=== PATIENT | male | born 1980 | race Two or more races ===

== ENCOUNTER 2020-08-19 09:06 | Outpatient (REF) | payer BC, SELFPAY | END 2020-08-19 09:07 | disposition home or self-care (01) | LOC: HO.LAB 09:06 | PROVIDERS: PCP Internal Medicine; Visit Provider Internal Medicine | DX: Z20.828 Contact with and (suspected) exposure to other viral communicable diseases (principal) | CPT/HCPCS: C9803; U0003 ==

== ENCOUNTER 2022-11-16 16:44 | Outpatient (REF) | payer BC, SELFPAY ==
[2022-11-16 17:01] LABS: MANUAL DIFF FLAG NO
[2022-11-16 17:36] LABS: Basophils Absolute Auto 0.1 X10*3/uL (0.0-0.2); Basophils Percent Auto 0.6 % (0-2); Eosinophils Absolute Auto 0.2 X10*3/uL (0.0-0.4); Eosinophils Percent Auto 1.8 % (0-4); Hematocrit 45.8 % (42.0-52.0); Hemoglobin 15.8 g/dl (14.0-18.0); Imm Gran Abs Auto 0.03 X10*3/uL (0.00-0.03); Imm Gran Pct Auto 0.4 % (0.0-0.4); Lymphocytes Absolute Auto 3.3 X10*3/uL (1.2-4.9); Lymphocytes Percent Auto 39.9 % (20-40); Mean Corpuscular HGB Conc 34.5 g/dl (31.0-36.0); Mean Corpuscular Hemoglobin 31.5 pg (27.0-33.0); Mean Corpuscular Volume 91.2 fL (80.0-98.0); Mean Platelet Volume 9.2 fL (9.4-12.4); Monocytes Absolute Auto 0.5 X10*3/uL (0.1-1.2); Monocytes Percent Auto 6.4 % (2-11); Neutrophils Absolute Auto 4.2 x10*3/uL (2.0-8.3); Neutrophils Percent Auto 50.9 % (45-73); Platelet Count 364 X10*3/uL (160-400); Red Blood Count 5.02 X10*6/uL (4.60-5.80); Red Cell Distribution Width 12.4 % (11.0-16.0); White Blood Count 8.2 X10*3/uL (4.8-10.8)
[2022-11-16 18:39] LABS: Alanine Aminotransferase 59 U/L (0-40); Albumin Level 4.4 g/dL (3.5-5.0); Alkaline Phosphatase 93 U/L (39-117); Anion Gap 17 (12-20); Aspartate Amino Transferase 33 U/L (5-37); Bilirubin Total 0.6 mg/dL (0.0-1.0); Blood Urea Nitrogen 17 mg/dL (9-16); Calcium 9.6 mg/dL (8.4-10.2); Carbon Dioxide 23 mmol/L (22-29); Chloride 105 mmol/L (96-108); Cholesterol 183 mg/dL; Estimated Glomerular Filt Rate 51; Glucose Random 86 mg/dL (60-115); HDL Cholesterol 50 mg/dL; LDL Cholesterol Calculated 98 mg/dl; Potassium 4.3 mmol/L (3.3-5.1); Sodium 141 mmol/L (135-145); Total Protein 6.9 g/dL (6.5-8.0); Triglycerides 177 mg/dL
[2022-11-16 18:56] LABS: Thyroid Stimulating Hormone 1.54 uIU/mL (0.32-4.0)
== END 2022-11-16 16:45 | disposition home or self-care (01) ==
LOC: HO.LAB 16:44
PROVIDERS: PCP Internal Medicine; Visit Provider Internal Medicine
DX: Z00.00 Encounter for general adult medical examination without abnormal findings (principal); L50.8 Other urticaria; Z71.6 Tobacco abuse counseling; T78.3XXS Angioneurotic edema, sequela
CPT/HCPCS: 36415; 80053; 80061; 84443; 85025

== ENCOUNTER 2022-12-28 14:38 | Outpatient (REF) | payer BC, SELFPAY ==
[2022-12-28 16:56] LABS: Urine Cytology See Pathology rpt
== END 2022-12-28 14:39 | disposition home or self-care (01) ==
LOC: HO.LNP 14:38
PROVIDERS: PCP Internal Medicine; Visit Provider Nurse Practitioner Family
DX: R31.29 Other microscopic hematuria (principal); F52.4 Premature ejaculation; E29.1 Testicular hypofunction; N52.9 Male erectile dysfunction, unspecified
CPT/HCPCS: 88112

== ENCOUNTER 2023-01-21 14:53 | Outpatient (REF) | payer BC, SELFPAY ==
--- NOTE | ~2023-01-21 | CT_ITS ---
EXAMINATION: CT ABDOMEN AND PELVIS WITHOUT AND WITH CONTRAST CLINICAL INFORMATION: Microscopic hematuria COMPARISON: None available. TECHNIQUE: Noncontrast CT of the abdomen and pelvis is performed followed by split bolus contrast-enhanced images using 85 mL Omnipaque 350 contrast.? Postcontrast imaging is performed during the combined nephrogram and excretion phase. Sagittal and coronal reformatted images were obtained on the technologist's workstation for both the precontrast and postcontrast phases. This CT examination was performed using dose optimization techniques as appropriate, variously including the following: *Automated exposure control *Adjustment of mA and/or kV according to patient size (this includes techniques or standardized protocols for targeted exams where dose is matched to indication/reason for exam; i.e. extremities or head) *Use of iterative reconstruction technique DLP: 586 mGy-cm FINDINGS: LUNG BASES: There is bibasilar dependent atelectasis. The heart size is normal. LIVER, GALLBLADDER, AND BILIARY TREE: The liver is normal in size, shape, and attenuation. No focal hepatic lesion or biliary ductal dilatation is present. The gallbladder is unremarkable with no evidence of radiopaque gallstones, gallbladder wall thickening, or obvious pericholecystic inflammatory changes. PANCREAS: Unremarkable. SPLEEN: Unremarkable. ADRENAL GLANDS: Unremarkable. KIDNEYS AND URETERS: There is a nonobstructive 2 mm radiopaque calculi upper pole right kidney. Following contrast administration there is bilateral symmetrical nephrograms without focal defect, enhancing mass or cyst. Left kidney measures 10.4 cm in length and right kidney measures 10.2 cm in length. There is opacification of bilateral kidney pelvises and right proximal ureter without any significant filling defect or distention. Nonopacified ureters are normal caliber also. BLADDER: Partially opacified bladder appears unremarkable. GASTROINTESTINAL TRACT: Scattered stool and gas is seen in colon without distention. The small bowel loops are normal caliber appendix is normal caliber. ABDOMINAL WALL: No significant hernia is appreciated. LYMPH NODES: No abnormal size retroperitoneal lymph nodes or mass seen. VASCULAR: Unremarkable. PELVIC VISCERA: Unremarkable. OSSEUS STRUCTURES: No aggressive lytic or sclerotic process seen. CT/CT urogram IMPRESSION: 1. Nonobstructive 2 mm radiopaque calculi upper pole right kidney. No caliectasis or hydronephrosis seen. 2. Mild constipation.
[2023-01-21] MEDS: iohexoL 350 MG/ML 100 ML INFUS..BTL IV (16:01)
== END 2023-01-21 14:54 | disposition home or self-care (01) ==
LOC: HO.CT 14:53
PROVIDERS: PCP Internal Medicine; Visit Provider Nurse Practitioner Family
DX: R31.29 Other microscopic hematuria (principal)
CPT/HCPCS: 74178; Q9967

== ENCOUNTER 2023-02-16 11:47 | Outpatient (REF) | payer BC, SELFPAY ==
[2023-02-16 13:44] LABS: Blood Urea Nitrogen 16 mg/dL (9-16); Estimated Glomerular Filt Rate > 60
[2023-02-21 12:33] LABS: Testosterone, Free 85.4 pg/mL (35.0-155.0); Testosterone, Total 606 ng/dL (250-1100)
== END 2023-02-16 11:48 | disposition home or self-care (01) ==
LOC: HO.LAB 11:47
PROVIDERS: PCP Internal Medicine; Visit Provider Nurse Practitioner Family
DX: E29.1 Testicular hypofunction (principal); R31.29 Other microscopic hematuria
CPT/HCPCS: 36415; 82565; 84402; 84403; 84520

== ENCOUNTER 2023-03-01 12:58 | Outpatient (AMB) | payer BC, SELFPAY ==
--- NOTE | 2023-03-01 13:19 | MHC.OFFVIS ---
Intake Intake Visit Reasons: Cysto/CT results/Labs Intake Note: Patient presents today for a Cystoscopy Procedure: Meds: None Antibiotic: None Blood Thinner: None Urinalysis test clear for Cystoscopy Undercutter Operator Required: No Accompanied by: Self / Same As Patient Allergies chantix Adverse Reaction (Uncoded 12/28/22 15:39) Hallucinations Medication List - Last Reconciled 03/01/23 by Mai Maravilla MD sildenafil (Viagra) 50 mg PO 2XW PRN tadalafil (Cialis) 5 mg PO DAILY HPI HPI Comments History of Present Illness Details Gael is a 42-year-old male presents to the office for cystoscopy procedure. 03/01/23-- The patient was last seen by WAREHOUSE SHIPPING SUPERVISOR Spohia Patel on 12/28/22. He had complains of ED and premature ejaculatio during the evaluation on that appoitment, UA was notable for microscopic hematuria past medical history: sognificant for nictonie dependecy pt was advised on hematuria work-up including CT imaging adn urien cytology he was also advised on nicotine cessation as it contributed to ED. The patient states that he went to see a physician when he was visiting in [facility] and he was prescribed an injectable to increase his testosterone level, he was told that he lab work which was done during the visit showed low testosterone level. [place] advised him not to take injectables and was reffered to urology. The WAREHOUSE SHIPPING SUPERVISOR ordered a testosterone level which I reviewed with the patient and was within normal limits. I reviewed CT urogram with the patient- there is 2 mm stone in upper pole of right kidney. I have discussed following up a trial of Cialis 5 mg QD as well as on demand Viagra 50 mg, no more than twice a week. I have advised him that if he has an erection for longer than 4 hours, then he needs to go to the ER and I will follow-up in 4 months. CTAP urogram results reviewed--01/21/23-- 2 mm calculi upper pole right kidney. No hydronehrosis. Urine cytology-- Non diagnostic. Evaluation today: Blood: negative, leukocytes: negative. Cystoscopy findings-- no suspicious bladder lesions visualized. Blood work results reviewed--02/16/23--total testosterone?606; free testosterone-- 85.4. Plan: Discussed to stop smoking. Viagra 50 mg was ordered. Cialis 5 mg QD was ordered. PFSH Medical History Dyslipidemia Surgical History History of tonsillectomy Review of Systems Const All systems reviewed & are unremarkable except as noted in HPI and below Reports as per HPI Eyes Reports no additional complaints ENT Reports no additional complaints Card Reports no additional complaints Resp Reports no additional complaints GI Reports no additional complaints Reports as per HPI Musc Reports no additional complaints Neuro Reports no additional complaints Psych Reports no additional complaints Endo Reports no additional complaints Jerad/Lymph Reports no additional complaints Aller/Immun Reports no additional complaints Office Procedures Cystoscopy Consent Discussed risk and benefit or proposed procedure with the patient. Information consent for procedure given to the patient. Discussed technical aspects, risks, benefits and alternatives in full. Addressed all of the patient's questions and concerns regarding the procedure. The patient demonstrated knowledge and understanding. They wish to proceed with this procedure. Preparation The patient was prepped in the usual manner. A caterpillar driver was present and in the room. Genitalia was prepped with betadine solution in a sterile manner. Lidocaine Jelly 2% was placed into the urethra and 16Fr flexible Olympus cystoscope was inserted into the meatus after adequate lubrication. Procedure Time out per protocol performed. Bladder Inspection Bladder Inspection: The bladder was inspected in its entirety with utilization retroflexion displaying: Tumor(s): none Trabeculation: N/A Mucosal Erthema: N/A Orifices: normal shape and position Urethra: normal Cystoscopy findings: prostatic urethra non obstructive, bulbous urethra WNL, no suspicious bladder lesions visualized [id number] Procedure code (CPT) selection complete Office Meds lidocaine HCl Performing Provider: Mai Maravilla MD Documented (not given) by: Mariela Natarajan RN on 03/01/23 13:34 Dose Route Admin Location Lot Number Expiration Date [facility] Petrophysicist 10 mL intra-urethral naproxen Performing Provider: Mai Maravilla MD Documented (not given) by: Mariela Natarajan RN on 03/01/23 13:34 Dose Route Admin Location Lot Number Expiration Date [facility] Petrophysicist 500 mg PO ciprofloxacin HCl Performing Provider: Mai Maravilla MD Documented (not given) by: Mariela Natarajan RN on 03/01/23 13:34 Dose Route Admin Location Lot Number Expiration Date [facility] Petrophysicist 500 mg PO Results AMB Urinalysis, Automated UA Leukoctes 0 Antonio/uL Last Edit by Ingrid Segovia [facility] on 03/01/23 13:22 UA Nitrite Negative Last Edit by Ingrid Segovia [facility] on 03/01/23 13:22 UA Urobilinogen 0.2 mg/dL Last Edit by Ingrid Segovia [facility] on 03/01/23 13:22 UA Protein 0 mg/dL Last Edit by Ingrid Segovia [facility] on 03/01/23 13:22 UA pH 6.0 Last Edit by Ingrid Segovia [facility] on 03/01/23 13:22 UA Blood 0 Terrence/uL Last Edit by Ingrid Segovia [facility] on 03/01/23 13:22 UA Specific [place] 1.025 Last Edit by Ingrid Segovia [facility] on 03/01/23 13:22 UA Ketone Positive Last Edit by Ingrid Segovia [facility] on 03/01/23 13:22 5mg Ingrid Seogvia 03/01/23 13:22 UA Bilirubin 0 mg/dL Last Edit by Ingrdi Segovia [facility] on 03/01/23 13:22 UA Glucose 0 mg/dL Last Edit by Ingrid Segovia [facility] on 03/01/23 13:22 Results Reviewed Results Reviewed: 03/01/23 09:00 Lidocaine HCl 2 % Urojet [Xylocaine 2 % Urojet] 30 ml .ROUTE .STK-MED ONE NaPROXEN [Naprosyn] 500 mg .ROUTE .STK-MED ONE Nitrofurantoin Monohyd/M-Cryst [Macrobid] 100 mg PO .STK-MED ONE Laboratory Last Values Urine pH (Auto) 6.0 03/01/23 13:21 Specific [place] (Auto) 1.025 03/01/23 13:21 Urine Protein (Auto) 0 mg/dL 03/01/23 13:21 Glucose (UA)(Auto) 0 mg/dL 03/01/23 13:21 Urine Ketones (Auto) Positive 03/01/23 13:21 Urine Blood (Auto) 0 Terrence/uL 03/01/23 13:21 Urine Nitrite (Auto) Negative 03/01/23 13:21 Urine Bilirubin (Auto) 0 mg/dL 03/01/23 13:21 Urine Urobilinogen (Auto) 0.2 mg/dL 03/01/23 13:21 Leukocyte Esterase (Auto) 0 Antonio/uL 03/01/23 13:21 Collected: 12/28/22 Received: 12/29/22 Diagnosis Urine:? Non-diagnostic. COMMENT:? Examination of a monolayer preparation slide shows scattered red blood cells. Clinical History Microscopic hematuria Material Received Urine Gross Description 50 cc cloudy yellow fluid Date of Service: 01/21/23 EXAMINATION: CT ABDOMEN AND PELVIS WITHOUT AND WITH CONTRAST CLINICAL INFORMATION: Microscopic hematuria COMPARISON: None available. TECHNIQUE: Noncontrast CT of the abdomen and pelvis is performed followed by split bolus contrast-enhanced images using 85 mL Omnipaque 350 contrast.? Postcontrast imaging is performed during the combined nephrogram and excretion phase. Sagittal and coronal reformatted images were obtained on the technologist's workstation for both the precontrast and postcontrast phases. This CT examination was performed using dose optimization techniques as appropriate, variously including the following: *Automated exposure control *Adjustment of mA and/or kV according to patient size (this includes techniques or standardized protocols for targeted exams where dose is matched to indication/reason for exam; i.e. extremities or head) *Use of iterative reconstruction technique DLP: 586 mGy-cm FINDINGS: LUNG BASES: There is bibasilar dependent atelectasis. The heart size is normal. LIVER, GALLBLADDER, AND BILIARY TREE: The liver is normal in size, shape, and attenuation. No focal hepatic lesion or biliary ductal dilatation is present. The gallbladder is unremarkable with no evidence of radiopaque gallstones, gallbladder wall thickening, or obvious pericholecystic inflammatory changes. PANCREAS: Unremarkable. SPLEEN: Unremarkable. ADRENAL GLANDS: Unremarkable. KIDNEYS AND URETERS: There is a nonobstructive 2 mm radiopaque calculi upper pole right kidney. Following contrast administration there is bilateral symmetrical nephrograms without focal defect, enhancing mass or cyst. Left kidney measures 10.4 cm in length and right kidney measures 10.2 cm in length. There is opacification of bilateral kidney pelvises and right proximal ureter without any significant filling defect or distention. Nonopacified ureters are normal caliber also. BLADDER: Partially opacified bladder appears unremarkable. GASTROINTESTINAL TRACT: Scattered stool and gas is seen in colon without distention. The small bowel loops are normal caliber appendix is normal caliber. ABDOMINAL WALL: No significant hernia is appreciated. LYMPH NODES: No abnormal size retroperitoneal lymph nodes or mass seen. VASCULAR: Unremarkable. PELVIC VISCERA: Unremarkable. OSSEUS STRUCTURES: No aggressive lytic or sclerotic process seen. IMPRESSION: 1. Nonobstructive 2 mm radiopaque calculi upper pole right kidney. No caliectasis or hydronephrosis seen. 2. Mild constipation. Assessment & Plan Assessment & Plan (1) Microhematuria: Code(s): R31.29 - Other microscopic hematuria (2) Erectile dysfunction: Code(s): N52.9 - Male erectile dysfunction, unspecified Plan Discussed to stop smoking. Viagra 50 mg was ordered. Cialis 5 mg QD was ordered. Orders: Orders AMB Cystoscopy 03/01/23 R31.29 - Other microscopic hematuria AMB Urinalysis Automated 03/01/23 Z13.9 - Encounter for screening, unspecified Medications: New ciprofloxacin HCl 500 mg PO ONCE 1 tab 0RF R31.29 - Other microscopic hematuria naproxen 500 mg PO ONCE 1 tab 0RF R31.29 - Other microscopic hematuria lidocaine HCl 2% 10 mL intra-urethral ONCE 10 mL 0RF R31.29 - Other microscopic hematuria tadalafil (Cialis) [id number] [facility] [place] [id number] Member [id number] 5 mg PO DAILY 30 tabs 3RF sildenafil (Viagra) administer 30 minutes to 4 hours before activity, do not use more than 2x a week [id number] [facility]33 Member [id number] 50 mg PO 2XW PRN 30 tabs 0RF sexual activity Patient Instructions: The patient had an opportunity to ask questions regarding treatment plan. All questions were answered. Imaging, Laboratory studies and physical exam results were discussed and reviewed in detail. No major barriers to understanding were identified. The patient expressed understanding and agreement with the above treatment plan. The patient is aware they should contact our office by phone for worsening of their current condition or the appearance of new symptoms. Compliance is encouraged with any medications and followup testing that is ordered. It is a privilege to be allowed the opportunity to participate in the urologic care of your patient. If you have any questions or concerns regarding treatment for the above conditions please do not hesitate to contact me. The office telephone contact is [phone]. This note is constructed in part using voice recognition software. While every effort has been made to ensure accuracy small equipment operator errors may have been included. Yours sincerely, Mai Maravilla MD Coding Level of Care Code Est Pt Level 3 (70658) Diagnoses Microhematuria R31.29 Erectile dysfunction N52.9 CPT Codes Cystoscopy - CPT: 34506-[id number] ([id number])
== END 2023-03-01 14:14 | disposition home or self-care (01) ==
PROVIDERS: PCP Internal Medicine; Visit Provider Urology
DX: R31.29 Other microscopic hematuria (principal); N52.9 Male erectile dysfunction, unspecified
CPT/HCPCS: 52000; 99213

== ENCOUNTER → 2023-03-01 12:58 | Outpatient (BNVA) | payer BC, SELFPAY | PROVIDERS: PCP Internal Medicine; Visit Provider Urology | DX: R31.29 Other microscopic hematuria (principal); N52.9 Male erectile dysfunction, unspecified | CPT/HCPCS: 52000 ==

== ENCOUNTER 2023-07-01 15:02 | Outpatient (AMB) | payer BC, SELFPAY ==
--- NOTE | 2023-07-01 15:04 | A.OFFVIS_ITS ---
Intake Intake Visit Reasons: 4m/cialis/ED/kidney stone/microscopic hematuria Intake Note: Patient presents today for a follow-up on Kidney Stone & Microscopic Hematuria: Meds- Cialis & Sildenafil Allergies to Antibiotic- No Known Allergies Blood Thinner- None Washing Machine Installer Required: Yes Washing Machine Installer Language: Laundry Worker Name: FABIAN Juan Information Interpreted: non-clinical & clinical Accompanied by: Self / Same As Patient Allergies sildenafil Allergy (Severe, Verified 07/01/23 15:08) Rash chantix Adverse Reaction (Uncoded 07/01/23 15:04) Hallucinations HPI HPI Comments History of Present Illness Details Gael is a 42-year-old male who presents today to the office for a follow-up. 07/01/2023? He is followed today for kidney stone and microscopic hematuria. past medical history: significant for nicotine dependecy. He underwent hematuria work up. He was also advised on nicotine cessation as it contributed to ED. He was last seen by me on 03/01/2023 for the complaints of erectile dysfunction and premature ejaculation. He was advised to use Viagra 50 mg twice a week on demand with sexual activity PRN, and Cialis 5 mg daily. Patient states that he had used Viagra 2 times and broke out rashes and blister on his face and mouth. Patient states that he has not used Viagra anymore, and he is afraid to get Cialis due to allergic reaction. Patient states that he is not able to please his partner which is frustrating. I have discussed that he may not get the same allergic reaction with the cialis so I want him to trial the medication. If he does get a reaction, he is to use benadryl and call the office to inform me. 07/01/2023: Evaluation today?UA?leukocyt es: negative; blood:negative. Review of chart: CTAP urogram results reviewed--01/21/23-- 2 mm calculi upper pole right kidney. No hydronehrosis. Urine cytology-- Non diagnostic. Cystoscopy findings-- no suspicious bladder lesions visualized. Blood work results reviewed--02/16/23--total testosterone?606; free testosterone-- 85.4. 07/01/2023: Plan: have refilled Cialis 5mg, and advised the patient to use Benadryl if he develops rashes, and if the Benadryl is not sufficient we will send prescription for steroids. Follow-up in [address] Guy. [facility] Medical History Dyslipidemia Surgical History History of tonsillectomy Review of Systems Const All systems reviewed & are unremarkable except as noted in HPI and below Reports as per HPI Eyes Reports no additional complaints ENT Reports no additional complaints Card Reports no additional complaints Resp Reports no additional complaints GI Reports no additional complaints Reports as per HPI Musc Reports no additional complaints Neuro Reports no additional complaints Psych Reports no additional complaints Endo Reports no additional complaints Jerad/Lymph Reports no additional complaints Aller/Immun Reports no additional complaints Results AMB Urinalysis, Automated UA Leukoctes 0 Antonio/uL Last Edit by FABIAN Juan on 07/01/23 15:24 UA Nitrite Negative Last Edit by FABIAN Juan on 07/01/23 15:24 UA Urobilinogen 0.2 mg/dL Last Edit by FABIAN Juan on 07/01/23 15:2 4 UA Protein 15 mg/dL Last Edit by FABIAN Juan on 07/01/23 15:24 UA pH 6.0 Last Edit by FABIAN Juan on 07/01/23 15:24 UA Blood 0 Terrence/uL Last Edit by FABIAN Juan on 07/01/23 15:24 UA Specific Bradley 1.030 Last Edit by FABIAN Juan on 07/01/23 15: 24 UA Ketone Negative Last Edit by FABIAN Juan on 07/01/23 15:24 UA Bilirubin 0 mg/dL Last Edit by FABIAN Juan on 07/01/23 15:24 UA Glucose 0 mg/dL Last Edit by FABIAN Juan on 07/01/23 15:24 Results Reviewed Results Reviewed: Laboratory Last Values Urine pH (Auto) 6.0 07/01/23 15:23 Specific Bradley (Auto) 1.030 07/01/23 15:23 Urine Protein (Auto) 15 mg/dL 07/01/23 15:23 Glucose (UA)(Auto) 0 mg/dL 07/01/23 15:23 Urine Ketones (Auto) Negative 07/01/23 15:23 Urine Blood (Auto) 0 Terrence/uL 07/01/23 15:23 Urine Nitrite (Auto) Negative 07/01/23 15:23 Urine Bilirubin (Auto) 0 mg/dL 07/01/23 15:23 Urine Urobilinogen (Auto) 0.2 mg/dL 07/01/23 15:23 Leukocyte Esterase (Auto) 0 Antonio/uL 07/01/23 15:23 Assessment & Plan Assessment & Plan (1) Microhematuria: Code(s): R31.29 - Other microscopic hematuria (2) Erectile dysfunction: Code(s): N52.9 - Male erectile dysfunction, unspecified (3) Kidney stone: Code(s): N20.0 - Calculus of kidney (4) Premature ejaculation: Code(s): F52.4 - Premature ejaculation Plan have refilled Cialis 5mg, and advised the patient to use Benadryl if he develops rashes, and if the Benadryl is not sufficient we will send prescription for steroids. Follow-up in [address] Guy. Orders: Orders AMB Urinalysis Automated 07/01/23 Z13.9 - Encounter for screening, unspecified Medications: Refilled tadalafil (Cialis) [id number] [facility] [id number] Member [id number] 5 mg PO DAILY 30 tabs 3RF Patient Instructions: The patient had an opportunity to ask questions regarding treatment plan. All questions were answered. Imaging, Laboratory studies and physical exam results were discussed and reviewed in detail. No major barriers to understanding were identified. The patient expressed understanding and agreement with the above treatment plan. The patient is aware they should contact our office by phone for worsening of their current condition or the appearance of new symptoms. Compliance is encouraged with any medications and followup testing that is ordered. It is a privilege to be allowed the opportunity to participate in the urologic care of your patient. If you have any questions or concerns regarding treatment for the above conditions please do not hesitate to contact me. The office telephone contact is [phone]. This note is constructed in part using voice recognition software. While every effort has been made to ensure accuracy forensic anthropologist errors may have been included. Yours sincerely, Mai Maravilla MD Coding Level of Care Code Est Pt Level 4 (47310) Diagnoses Microhematuria R31.29 Erectile dysfunction N52.9 Kidney stone N20.0 Premature ejaculation F52.4
== END 2023-07-01 15:25 | disposition home or self-care (01) ==
PROVIDERS: PCP Internal Medicine; Visit Provider Urology
DX: R31.29 Other microscopic hematuria (principal); N52.9 Male erectile dysfunction, unspecified; N20.0 Calculus of kidney; F52.4 Premature ejaculation
CPT/HCPCS: 99214

== ENCOUNTER → 2023-07-01 15:02 | Outpatient (BNVA) | payer BC, SELFPAY | PROVIDERS: PCP Internal Medicine; Visit Provider Urology | DX: R31.29 Other microscopic hematuria (principal); N20.0 Calculus of kidney; N52.9 Male erectile dysfunction, unspecified; F52.4 Premature ejaculation; Z79.899 Other long term (current) drug therapy | CPT/HCPCS: 81003 ==

== ENCOUNTER 2024-11-13 16:00 | Outpatient (REF) | payer BC, SELFPAY ==
[2024-11-13 17:41] LABS: Alanine Aminotransferase 77 U/L (0-40); Albumin Level 4.4 g/dL (3.5-5.0); Alkaline Phosphatase 89 U/L (39-117); Anion Gap 12 (12-20); Aspartate Amino Transferase 41 U/L (5-37); Bilirubin Total 0.5 mg/dL (0.0-1.0); Blood Urea Nitrogen 11 mg/dL (9-16); Calcium 9.1 mg/dL (8.4-10.2); Carbon Dioxide 26 mmol/L (22-29); Chloride 105 mmol/L (96-108); Cholesterol 217 mg/dL (<200); Estimated Glomerular Filt Rate > 60; Glucose Random 74 mg/dL (60-115); HDL Cholesterol 43 mg/dL (>40); LDL Cholesterol Calculated 105 mg/dL (<100); Potassium 3.9 mmol/L (3.3-5.1); Sodium 139 mmol/L (135-145); Total Protein 7.6 g/dL (6.5-8.0); Triglycerides 348 mg/dL (<150)
--- OUTSIDE RECORDS SUMMARY | 2024-11-13 17:56 | XMS_ITS | Clinical Summary ---
Author Organization [facility] Facility Address [address] [place] [address] Care Team Providers Care Oil House Attendant Name Role Phone Jen Acosta MD Primary Care Provider Allergies Active Allergy Reactions Criticality Noted Date Comments Varenicline 07/06/2023 Medications EPINEPHrine (EpiPen 2-Vijay) 0.3 MG/0.3ML injection syringe Inject 1 Syringe into the shoulder, thigh, or buttocks 1 (one) time Active cetirizine (ZyrTEC) 10 MG tablet Take 10 mg by mouth 1 (one) time each day Active Active Problems Problem Noted Date Diagnosed Date Nephrolithiasis 07/06/2023 Dyslipidemia 07/06/2023 Microscopic hematuria 07/06/2023 Hypogonadism 07/06/2023 Social History Tobacco Use Types Packs/Day Years Used Date Smoking Tobacco: Every Day Cigarettes Tobacco Cessation:Ready to Q uit: Not Asked Alcohol Use Standard Drinks/Week Comments Yes 0 (1 standard drink = 0.6 oz pur e alcohol) Sex and Gender Information Value Date Recorded Sex Assigned at Not on file Legal Sex Male 7:31 AM EDT Gender Identity Not on file Sexual Orientation Not on file Plan of Treatment Health Maintenance Due Date Last Done Comments Pneumococcal Vaccine: Pediat rics (0 to 5 Years) and At-Risk Patients (6 to 64 Years) (1 of 2 - PCV) 1988 Hepatitis B Vaccine (1 of 3 - 19+ 3-dose series) 07/13 Influenza Vaccine (#1) 2024 Insurance [facility] Care Teams Oil House Attendant Relationship Specialty Start Date End Date Jen Acosta MD [address] [place] [address] PCP - General Internal Medicine 02/24/23
--- OUTSIDE RECORDS SUMMARY | 2024-11-13 17:56 | XMS_ITS | Clinical Summary ---
Author Organization [facility] ity Address [address] [place] [address] Care Team Providers Care Data Quality Consultant Name Role Phone Unavailable Primary Care Provider Unavailabl e Social History Tobacco Use Types Packs/Day Years Used Date Smoking Tobacco: Never Assessed Sex and Gender Information Value Date Recorded Sex Assigned at Not on file Legal Sex Male 11:12 AM EST Gender Identity Not on file Sexual Orientation Not on file Plan of Treatment Health Maintenance Due Date Last Done Comments DTaP,Tdap,and Td Vaccines (1 - Tdap) 2001 Hepatitis B Vaccines (1 of 3 - 19+ 3-dose series) 2001 COVID-19 Vaccine (2023-2 5 season) 2024 Influenza Vaccine (#1) 2024 HIB Vaccines Aged Out No longer eligi ble based on patient's age to complete this topic HPV Vaccines Aged Out No longer eligi ble based on patient's age to complete this topic Hepatitis A Vaccines Aged Out No long er eligible based on patient's age to complete this topic IPV Vaccines Aged Out No longer eligi ble based on patient's age to complete this topic MMR Vaccines Aged Out No longer eligi ble based on patient's age to complete this topic Meningococcal ACWY Vaccine Aged Out N o longer eligible based on patient's age to complete this topic Meningococcal B Vacine Aged Out No lo nger eligible based on patient's age to complete this topic Pneumococcal Vaccine: Pediat rics (0 to 5 Years) and At-Risk Patients (6 to 64 Years) Aged Out No longer eligible b ased on patient's age to complete this topic RSV Immunization Patients Un dallin 20 months Aged Out No longer eligible b ased on patient's age to complete this topic Varicella Vaccines Aged Out No longer eligible based on patient's age to complete this topic
[2024-11-14 08:10] LABS: HBS Num1 99.12 mIU/mL (0-7.99); HBc Num1 0.98 S/CO (0.00-0.79); HBsAGNum1 0.33 S/CO (0.00-0.99); Hepatitis B Surface Antigen Negative (Negative); ~Hepatitis B Surface Antibody REACTIVE (Nonreactive)
[2024-11-14 09:10] LABS: HBc Num2 0.31 S/CO; HBc Num3 0.22 S/CO; Hepatitis B Core Antibody Nonreactive (Nonreactive)
[2024-11-14 12:28] LABS: HCV RNA PCR Qn <1.18 NOT DETECTED Log IU/mL (NOT DETECTED); HCV RNA PCR Qn <15 NOT DETECTED IU/mL (NOT DETECTED)
== END 2024-11-13 16:01 | disposition home or self-care (01) ==
LOC: HO.LAB 16:00
PROVIDERS: PCP Internal Medicine; Visit Provider Internal Medicine
DX: J20.9 Acute bronchitis, unspecified (principal); N18.9 Chronic kidney disease, unspecified; R74.01 Elevation of levels of liver transaminase levels; Z72.0 Tobacco use
CPT/HCPCS: 36415; 80053; 80061; 86704; 86706; 87340; 87522